=== PATIENT | male | born 1985 | race Caucasian/White ===

== ENCOUNTER → 2018-02-13 08:55 | Outpatient (CLI) | payer MEDICARE, MEDICAID, SELFPAY ==
--- NOTE | 2018-02-13 09:09 | EKG12_ITS ---
Test Reason : Blood Pressure : / mmHG Vent. Rate : 049 BPM Atrial Rate : 049 BPM P-R Int : 174 ms QRS Dur : 092 ms QT Int : 414 ms P-R-T Axes : 045 002 014 degrees QTc Int : 373 ms Marked sinus bradycardia Cannot rule out Inferior infarct , age undetermined Abnormal ECG Confirmed by SARITHA COREA, FOSTER ([id number]), acquisitions editor AKIRA MANCERA ([id number] on 02/14/2018 3:35:09 PM Referred By: OUT DOCTOR Confirmed By:FOSTER MELARA MD
== END ==
DX: Z79.899 Other long term (current) drug therapy (principal)
CPT/HCPCS: 93005

== ENCOUNTER 2018-04-17 10:17 | Inpatient (IN) | payer MEDICARE, MEDICAID, SELFPAY ==
[2018-04-17] VITALS (9 sets, daily range): BP systolic 106–155; BP diastolic 63–97; PULSE 63–107; RESP 12–20; TEMP 36.6; O2SAT 96–99
[2018-04-17 11:25] LABS: Absolute Neutrophil Count 4.2 X10^3/uL (2.0-7.7); Basophil# 0.02 X10^3/uL; Basophil% 0.3 % (0-1); Eosinophil# 0.03 X10^3/uL; Eosinophils% 0.4 % (0-5); Hematocrit 43.3 % (40-54); Hemoglobin 14.4 g/dl (13.0-16.5); Lymphocyte % 29.6 % (19-41); Mean Corp Hgb Conc 33.3 g/gl (32-36); Mean Corpuscular Hgb 29.1 pg (27.0-32.0); Mean Corpuscular Volume 87.7 fL (80-94); Monocyte# 0.45 X10^3/uL; Monocyte% 6.7 % (0-10); Neutrophil # 4.23 X10^3/uL (2.7-7.7); Neutrophil % 62.6 % (47-70); POSITIVE COUNT NO; POSITIVE DIFFERENTIAL NO; POSITIVE MORPHOLOGY NO; Platelet Count 200 K/mm3 (150-450); RBC Distribution Width CV 13.2 % (11.6-14.6); RBC Distribution Width SD 42.1 fl (35.1-43.9); Red Blood Count 4.94 M/mm3 (4.6-6.2); White Blood Count 6.8 K/mm3 (4.4-11.0)
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
[2018-04-17 11:39] LABS: AST(SGOT) 22 U/L (15-37); Alanine Aminotransfer ALT/SGPT 32 U/L (16-61); Albumin, Serum 4.9 g/dL (3.2-5.0); Alkaline Phosphatase 76 U/L (45-117); Anion Gap 8 (5-15); BUN 11 mg/dL (7-18); BUN/Creat Ratio 14.6 RATIO (10-20); Bilirubin, Direct 0.17 mg/dL (0.00-0.30); Calcium,Total 10.4 mg/dL (8.5-10.1); Chloride 102 mmol/L (98-107); Creatinine, Serum 0.75 mg/dL (0.70-1.30); EST Glomerular Filtration Rate 126 mL/min (>60); Est Glom Filt Rate - Afr Amer 152 mL/min (>60); Estimated Creatinine Clearance 143.14 ml/min; Globulin 3.8 g/dL (2.2-4.2); Glucose 105 mg/dL (74-106); Lipase 107 U/L (73-393); Potassium 3.8 mmol/L (3.5-5.1); Protein, Total 8.7 g/dL (6.4-8.2); Sodium Level 139 mmol/L (136-145)
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
[2018-04-17 12:03] LABS: Alcohol, Blood (Medical)-Serum < 3.0 mg/dL
[2018-04-17] MEDS: Ziprasidone IM 20 MG/ML VIAL 10 MG IM ×2 (12:42→13:27)
--- NOTE | 2018-04-17 13:12 | CASEMGMT ---
Social Work Accompanied laser technician, Saundra Banuelos, to meet pt's mother. Pt recently sedated. Mother, Paige, present outside of room. Introduced self and role. Mother reports that the pt does live in a fdc and is there under a Medicaid Waiver. Geraldo Rayo, with crisis is here to evaluate the pt for placement. Paige denies any needs at this time and is made aware that SW and Health Sciences Program Coordinator are available. Elle Mcnair, INSPECTOR FLOOR SUB ASSEMBLY, UI ARCHITECT
[2018-04-17] MEDS: Haloperidol Lactate 5 MG/ML Vial 10 MG IM (15:26)
[2018-04-17] MEDS: DiphenhydrAMINE 50 MG/ML Syringe 25 MG IM (15:26)
[2018-04-17 15:55] LABS: Amphetamine Urine VISTA NEGATIVE (<1000 ng/mL); Barbiturate Urine VISTA NEGATIVE (< 200 ng/mL); Benzodiazepine Urine VISTA NEGATIVE (< 200 ng/mL); Cocaine Urine VISTA NEGATIVE (< 300 ng/mL); Ecstacy Urine VISTA NEGATIVE (< 500 ng/mL); Methadone Urine VISTA NEGATIVE (< 300 ng/mL); PCP Urine VISTA NEGATIVE (< 25 ng/mL); THC Urine VISTA NEGATIVE (< 50 ng/mL); Vista UDS pH Range 6
[2018-04-17] MEDS: LORazepam 2 MG/ML Syringe IM (16:05)
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
[2018-04-17] MEDS: diazePAM 10 MG/2 ML Syringe 5 MG IM (18:12)
--- NOTE | 2018-04-17 21:41 | ED.RN ---
PT BECAME EXTREMELY COMBATIVE AND AGITATED. PT THRASHING AROUND AND HITTING BED. PT HARM TO HIMSELF AND OTHERS. PT BECAME VERY VIOLENT AND YELLING LOUDLY. PT PLACED BACK INTO 4 POINT LOCKED RESTRAINTS.
[2018-04-17] MEDS: LORazepam 2 MG/ML Syringe 1 MG IM (23:27)
[2018-04-18] VITALS (42 sets, daily range): BP systolic 95–187; BP diastolic 54–144; PULSE 55–132; RESP 13–29; TEMP 36.3–37.2; O2SAT 95–100; BMI 25.5
[2018-04-18] MEDS: LORazepam 2 MG/ML Syringe 1 MG IM (00:30)
[2018-04-18] MEDS: DiphenhydrAMINE 50 MG/ML Syringe IM (00:30)
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
[2018-04-18] MEDS: Ziprasidone IM 20 MG/ML VIAL IM (03:44)
--- NOTE | 2018-04-18 04:07 | ED.RN ---
PT RECEIVED GEODON AND WAITING FOR THE MEDICATION TO CALM THE PT.PT CONTINUES TO YELL AND MOVE RESTLESS IN BED.RESTRAINTS MAINTAINED AT THIS TIME.
--- NOTE | 2018-04-18 05:16 | ED.RN ---
PT APPEARS TO BE ASLEEP,REMOVED RESTRAINT FROM L HAND.WILL MONITOR.
--- NOTE | 2018-04-18 06:03 | ED.RN ---
pt sleeping,l leg released.
--- NOTE | 2018-04-18 07:03 | ED.RN ---
0630 PT STARTED TO KICK AND MARIELA,RESTRAINTS APPLIED.
--- NOTE | 2018-04-18 08:03 | ED.RN ---
TALKED WITH HOUSEHOLD APPLIANCES SALESPERSON THEY ARE IN A MEETING AND SOMEONE WILL CALL IN A HALF HOUR [phone]
--- NOTE | 2018-04-18 08:30 | ED.RN ---
PT REQUESTING IN USE BR. REMOVED FROM RESTAINTS, CALM AND COOPERATIVE. RESTRAINTS LEFT OFF AT THIS TIME. FAMILY AT BEDSIDE. ANGIE FROM CRISIS. CALLED TO UPDATED THAT DIRECTOR OF [facility]DD IS ALSO ATTEMPTING TO FIND PT PLACMENT.
--- NOTE | 2018-04-18 08:39 | ED.RN ---
ANGIE EARLY CALLED DIRECTOR OF BOARD OF DD, ANGIE AMATO, HE IS CURRENTLY LOOKING FOR PLACEMENT OF PATIENT @[phone]
[2018-04-18] MEDS: LORazepam 2 MG/ML Syringe IM ×2 (10:46→16:00)
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
--- NOTE | 2018-04-18 12:20 | ED.RN ---
ANGIE FROM CRISIS CALLED WITH UPDATE. NO PLACEMENT AT THIS TIME. HAS BEEN DECLINED BY SEVERAL FACILITIES. PLACING NEW REFERAL TO [place] AT THIS TIME.
--- NOTE | 2018-04-18 12:59 | EKG12_ITS ---
Test Reason : MENTAL Blood Pressure : / mmHG Vent. Rate : 094 BPM Atrial Rate : 094 BPM P-R Int : 148 ms QRS Dur : 082 ms QT Int : 354 ms P-R-T Axes : 046 000 010 degrees QTc Int : 442 ms Normal sinus rhythm Normal ECG Confirmed by FOSTER MELARA MD ([id number]), magazine editor JOSELITO LIVINGSTON ([id number]) on 04/21/2018 8:37:45 AM Referred By: DAIANA Confirmed By:FOSTER MELARA MD
[2018-04-18 14:16] LABS: CPK Total, Creatine Kinase 1826 U/L (39-308)
--- NOTE | 2018-04-18 14:45 | ED.RN ---
LAB WORK, MED LIST AND EKG FAXED TO [facility]. PT REMAINS AGIITATED AND YELLING OUT FREQUENTLY. REPOSITIONED IN BED. REPOSITIONED RESTRAINTS AND OFFERED DRINK AND TOILETING. DAD REMAINS AT BEDSIDE.
--- NOTE | 2018-04-18 15:01 | ED.RN ---
REFUSING MEDICATIONS AT THIS TIME.
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
[2018-04-18] MEDS: 0.9% Normal Saline 1,000 ML 150 ML IV (18:51)
--- NOTE | 2018-04-18 21:05 | NURSING ---
Pt resting in bed quietly. Ankle restraints removed. Father asleep at bedside.
[2018-04-18 21:43] LABS: M R Staph aureus DNA By PCR Negative (Negative); Probe Check PASS; Specimen Processing Control PASS
--- NOTE | 2018-04-18 22:20 | NURSING ---
Attempted to assist pt with ordered PO medications. Offered food, drink and toileting at this time. Pt refused, yelling out. This RN and father unable to calm pt. Wrist restraints remain in place.
[2018-04-19] VITALS (41 sets, daily range): BP systolic 96–142; BP diastolic 53–99; PULSE 39–116; RESP 14–32; TEMP 36.1–36.7; O2SAT 95–99
--- NOTE | 2018-04-19 00:05 | NURSING ---
Pt bladder scanned for 288 ml. Pt denies need to void.
[2018-04-19] MEDS: 0.9% Normal Saline 1,000 ML 150 ML IV ×4 (01:29→20:20)
--- NOTE | 2018-04-19 02:00 | NURSING ---
4 point locked restraints removed from wrists. Pt placed in soft wrist restraints for non-violent behavior and to continue medical management safely.
--- NOTE | 2018-04-19 02:45 | NURSING ---
This RN and LITHARGE MILL OPERATOR at bedside to assist pt in voiding. Pt became very agitated and combative with staff. Unable to calm patient, additional staff called to bedside and 4 point locked restraints were reapplied. aware.
--- NOTE | 2018-04-19 03:57 | PCA ---
patient in 4 point locked restraints which are locked to the bed and could be adding to the patients weight
[2018-04-19 04:24] LABS: Hematocrit 38.6 % (40-54); Hemoglobin 12.7 g/dl (13.0-16.5); Mean Corp Hgb Conc 32.9 g/gl (32-36); Mean Corpuscular Hgb 29.3 pg (27.0-32.0); Mean Corpuscular Volume 89.1 fL (80-94); Platelet Count 171 K/mm3 (150-450); RBC Distribution Width CV 13.5 % (11.6-14.6); RBC Distribution Width SD 44.2 fl (35.1-43.9); Red Blood Count 4.33 M/mm3 (4.6-6.2); White Blood Count 5.4 K/mm3 (4.4-11.0)
[2018-04-19 04:26] LABS: Scan Indicated on CBC? Y/N NO
[2018-04-19 05:21] LABS: Anion Gap 6 (5-15); BUN 15 mg/dL (7-18); BUN/Creat Ratio 20.7 RATIO (10-20); CPK Total, Creatine Kinase 1636 U/L (39-308); Calcium,Total 8.4 mg/dL (8.5-10.1); Chloride 110 mmol/L (98-107); Creatinine, Serum 0.73 mg/dL (0.70-1.30); EST Glomerular Filtration Rate 131 mL/min (>60); Est Glom Filt Rate - Afr Amer 159 mL/min (>60); Estimated Creatinine Clearance 147.22 ml/min; Glucose 100 mg/dL (74-106); Potassium 3.5 mmol/L (3.5-5.1); Sodium Level 144 mmol/L (136-145)
[2018-04-19] MEDS: RisperiDONE 2 MG Tablet 4 MG PO ×2 (09:07→22:33)
[2018-04-19] MEDS: Enoxaparin 40 MG/0.4 ML Syringe SC (09:10)
[2018-04-19] MEDS: fluvoxaMINE Maleate 50 MG Tablet 200 MG PO (09:10)
--- NOTE | 2018-04-19 10:05 | PCM.PN.HOSP ---
Patient Problems: Active and Suspected Problems Agitation (Acute) Elevated CPK (Acute) Subjective: Agitated overnight. He was not to medications. Still thrashing in his bed at times yelling out. Patient is to complain of having to go to the bathroom. Were able to get the patient to take his home medications when his mother told us to ask him if he was having headache and variably patient only says yes and told that he was taking Tylenol when he was not given his medications. This was done so patient was occasions and we are hoping to avoid placing an NG tube. Vitals/I&O's: Vital Signs Temp Pulse Resp BP Pulse Ox 36.3 C L 40 L 19 H 137/84 H 99 04/19/18 08:00 04/19/18 09:00 04/19/18 09:00 04/19/18 09:00 04/19/18 09:00 Oxygen Delivery Method Room Air Weight: 84.6 kg Body Mass Index (BMI) 25.5 Intake and Output for Last 24 Hours 04/17/18 04/18/18 04/19/18 23:59 23:59 23:59 Intake Total 721 / 721 1416 / 1416 Output Total 100 / 100 Balance 721 / 721 1316 / 1316 General: - - Agitated. Confused. Yelling out. Thrashing in bed. In four-point restraints. HEENT: Atraumatic, Normocephalic Oral: Moist Mucosa, No Gingival or Mucosal Lesions/ Ulcerations Neck: No Nodes, Thyroid Normal Size and Texture Lungs: Clear to auscultation, Normal air movement, No rhonchi, No wheeze Cardiovascular: Regular rate, Regular Rhythm, Normal S1, Normal S2, No murmurs Abdomen: Bowel Sounds Present, Soft, Non Tender, Non-Distended, No Hepato-splenomegaly Extremities: No edema, No Calf Tenderness Skin: No rashes, No breakdown Psych/Mental Status: Agitated, Anxious, Irrational Behavior, Restless Laboratory Results 04/18/18 20:00: MRSA (PCR) Negative 04/19/18 04:05: WBC 5.4, RBC 4.33 L, Hgb 12.7 L, Hct 38.6 L, MCV 89.1, MCH 29.3, MCHC 32.9, RDW 13.5, RDW Differential 44.2 H, Plt Count 171, MPV 10.0 04/19/18 04:05: Sodium 144, Potassium 3.5, Chloride 110 H, Carbon Dioxide 28.0, Anion Gap 6, BUN 15, Creatinine 0.73, Estim Creat Clear Calc 147.22, Est GFR (MDRD) Af Amer 159, Est GFR (MDRD) Non-Af 131, BUN/Creatinine Ratio 20.7 H, Glucose 100, Calcium 8.4 L 04/19/18 04:05: Total Creatine Kinase 1636 H Current Medications Enoxaparin Sodium (Lovenox) 40 mg SC DAILY@1000 [facility] Last Admin: 04/19/18 09:10 Dose: 40 mg Fluvoxamine Maleate (Luvox) 200 mg PO DAILY [facility] Last Admin: 04/19/18 09:10 Dose: 200 mg Dexmedetomidine HCl 400 mcg/ (Sodium Chloride) 100 mls @ 10.08 mls/hr IV .Q9H56M [facility] PRN Reason: 0.5 MCG/KG/HR Last Admin: 04/19/18 04:07 Dose: 10.08 mls/hr Sodium Chloride () 1,000 mls @ 150 mls/hr IV .Q6H40M [facility] Last Admin: 04/19/18 07:56 Dose: 150 mls/hr Magnesium Hydroxide (Milk Of Magnesia) 30 ml PO DAILY PRN PRN PRN Reason: Constipation Propranolol HCl (Inderal) 10 mg PO DAILY [facility] Last Admin: 04/19/18 09:00 Dose: Not Given Propranolol HCl (Inderal) 20 mg PO QHS [facility] Last Admin: 04/18/18 21:49 Dose: Not Given Risperidone (Risperdal) 4 mg PO BID [facility] Last Admin: 04/19/18 09:07 Dose: 4 mg Sodium Chloride () 5 - 30 ml IV UD PRN PRN Reason: SALINE FLUSH Vilazodone HCl (Viibryd) 20 mg PO DAILY@2200 [facility] Last Admin: 04/18/18 21:50 Dose: Not Given Medical Necessity - Tobacco Use Smoking Status: Never smoker Assessment/Plan All Active Problems Agitation (Acute) Elevated CPK (Acute) 1. Agitation Patient has been on maximum dose of Precedex Were able to get the patient to take his home medications with Risperdal this morning. Will help that his home medications will help the Precedex drip. May need to introduce other medications to help with sedation if patient continues to be combative. Will initiate Precedex taper Feel that the patient's agitation has accelerated drained. This was also commented by the patient's mother who saw all of this. 2. Elevated CPK The psychiatric facilities have declined taking the patient because of his CPKs being elevated The reason for the patient's CPK is elevated R due to his constant thrashing around. I do not feel the patient is undergoing rhabdomyolysis for unknown reasons but simply due to the fact that he is currently thrashing around. Unfortunately, I feel, that the refusal of the psychiatric units to take this patient based on his CPK is just a stalling tactic and there is no medical necessity for the patient to remain in this hospital based solely on the CPKs. Additionally, I do not know of any specific reason why CPKs were checked in the first place. 3. Autism/OCD/aggressive behavior Continue with Risperdal and Viibryd Patient requires further inpatient psychiatric assistance as we do not have the appropriate services to meet this patient's needs. 4. DVT prophylaxis with Lovenox Greater than 40 minutes of which greater than 50% of time was counseling the patient's mother at bedside in addressing modalities of providing the patient is home medications. Code Visit Inpatient E&M: 21230 Subs Hosp L3
--- NOTE | 2018-04-19 10:18 | PN_ITS ---
Patient Problems: Active and Suspected Problems Agitation (Acute) Elevated CPK (Acute) Subjective: Agitated overnight. He was not to medications. Still thrashing in his bed at times yelling out. Patient is to complain of having to go to the bathroom. Were able to get the patient to take his home medications when his mother told us to ask him if he was having headache and variably patient only says yes and told that he was taking Tylenol when he was not given his medications. This was done so patient was occasions and we are hoping to avoid placing an NG tube. Vitals/I&O's: Vital Signs Temp Pulse Resp BP Pulse Ox 36.3 C L 40 L 19 H 137/84 H 99 04/19/18 08:00 04/19/18 09:00 04/19/18 09:00 04/19/18 09:00 04/19/18 09:00 Oxygen Delivery Method Room Air Weight: 84.6 kg Body Mass Index (BMI) 25.5 Intake and Output for Last 24 Hours 04/17/18 04/18/18 04/19/18 23:59 23:59 23:59 Intake Total 721 / 721 1416 / 1416 Output Total 100 / 100 Balance 721 / 721 1316 / 1316 General: - - Agitated. Confused. Yelling out. Thrashing in bed. In four- point restraints. HEENT: Atraumatic, Normocephalic Oral: Moist Mucosa, No Gingival or Mucosal Lesions/ Ulcerations Neck: No Nodes, Thyroid Normal Size and Texture Lungs: Clear to auscultation, Normal air movement, No rhonchi, No wheeze Cardiovascular: Regular rate, Regular Rhythm, Normal S1, Normal S2, No murmurs Abdomen: Bowel Sounds Present, Soft, Non Tender, Non-Distended, No Hepato- splenomegaly Extremities: No edema, No Calf Tenderness Skin: No rashes, No breakdown Psych/Mental Status: Agitated, Anxious, Irrational Behavior, Restless Laboratory Results 04/18/18 20:00: MRSA (PCR) Negative 04/19/18 04:05: WBC 5.4, RBC 4.33 L, Hgb 12.7 L, Hct 38.6 L, MCV 89.1, MCH 29.3 , MCHC 32.9, RDW 13.5, RDW Differential 44.2 H, Plt Count 171, MPV 10.0 04/19/18 04:05: Sodium 144, Potassium 3.5, Chloride 110 H, Carbon Dioxide 28.0, Anion Gap 6, BUN 15, Creatinine 0.73, Estim Creat Clear Calc 147.22, Est GFR ( MDRD) Af Amer 159, Est GFR (MDRD) Non-Af 131, BUN/Creatinine Ratio 20.7 H, Glucose 100, Calcium 8.4 L 04/19/18 04:05: Total Creatine Kinase 1636 H Current Medications Enoxaparin Sodium (Lovenox) 40 mg SC DAILY@1000 [facility] Last Admin: 04/19/18 09:10 Dose: 40 mg Fluvoxamine Maleate (Luvox) 200 mg PO DAILY [facility] Last Admin: 04/19/18 09:10 Dose: 200 mg Dexmedetomidine HCl 400 mcg/ (Sodium Chloride) 100 mls @ 10.08 mls/hr IV .Q9H56M [facility] PRN Reason: 0.5 MCG/KG/HR Last Admin: 04/19/18 04:07 Dose: 10.08 mls/hr Sodium Chloride () 1,000 mls @ 150 mls/hr IV .Q6H40M [facility] Last Admin: 04/19/18 07:56 Dose: 150 mls/hr Magnesium Hydroxide (Milk Of Magnesia) 30 ml PO DAILY PRN PRN PRN Reason: Constipation Propranolol HCl (Inderal) 10 mg PO DAILY [facility] Last Admin: 04/19/18 09:00 Dose: Not Given Propranolol HCl (Inderal) 20 mg PO QHS [facility] Last Admin: 04/18/18 21:49 Dose: Not Given Risperidone (Risperdal) 4 mg PO BID [facility] Last Admin: 04/19/18 09:07 Dose: 4 mg Sodium Chloride () 5 - 30 ml IV UD PRN PRN Reason: SALINE FLUSH Vilazodone HCl (Viibryd) 20 mg PO DAILY@2200 [facility] Last Admin: 04/18/18 21:50 Dose: Not Given Medical Necessity - Tobacco Use Smoking Status: Never smoker Assessment/Plan All Active Problems Agitation (Acute) Elevated CPK (Acute) 1. Agitation * Patient has been on maximum dose of Precedex * Were able to get the patient to take his home medications with Risperdal this morning. * Will help that his home medications will help the Precedex drip. May need to introduce other medications to help with sedation if patient continues to be combative. * Will initiate Precedex taper * Feel that the patient's agitation has accelerated drained. This was also commented by the patient's mother who saw all of this. 2. Elevated CPK * The psychiatric facilities have declined taking the patient because of his CPKs being elevated * The reason for the patient's CPK is elevated R due to his constant thrashing around. I do not feel the patient is undergoing rhabdomyolysis for unknown reasons but simply due to the fact that he is currently thrashing around. * Unfortunately, I feel, that the refusal of the psychiatric units to take this patient based on his CPK is just a stalling tactic and there is no medical necessity for the patient to remain in this hospital based solely on the CPKs. * Additionally, I do not know of any specific reason why CPKs were checked in the first place. 3. Autism/OCD/aggressive behavior * Continue with Risperdal and Viibryd * Patient requires further inpatient psychiatric assistance as we do not have the appropriate services to meet this patient's needs. 4. DVT prophylaxis with Lovenox Greater than 40 minutes of which greater than 50% of time was counseling the patient's mother at bedside in addressing modalities of providing the patient is home medications. Code Visit Inpatient E&M: 94324 [facility] Hosp L3
--- NOTE | 2018-04-19 11:13 | CASEMGMT ---
SW was told patient is medically cleared. KIRAN called fire official and asked her to call crisis to come and see patient to work on psych placement. Susanna HARRY MSW
[2018-04-19 13:31] LABS: CPK Total, Creatine Kinase 1740 U/L (39-308)
--- NOTE | 2018-04-19 17:44 | CHAPLAIN ---
Type of Pastoral Visit ___ Initial Visit ___ Follow-up Visit ___ On-call Visit ___ General Patient Visit ___ Spiritual Assessment ___ Family Conference ___ Bereavement ___ Rapid Response ___ Code Blue _x__ Other (describe below) Pastoral Care Referral From ___ Patient ___ Family _x__ Nurse ___ Physician ___ Team Psychologist ___ Operations And Maintenance Technician _x__ Other (describe below) Sacrament/Intervention ___ Active listening ___ Anointing ___ Hinduism ___ Bereavement ___ Communion ___ Hilary exploration ___ ___ Life review ___ Prayer ___ Reconciliation ___ Sacrament of Sick _x__ Supportive presence ___ Wedding _x__ Other (describe below) Pastoral Comments spoke with parents of pt during his ED stay and spoke with mother of patient today in ICU; offer of presence and support; parents are obviously in need of support but kindly respond that I will be ok but it is hard;
[2018-04-19] MEDS: VILAZODONE HYDROCHLORIDE 20 MG TABLET PO (22:49)
[2018-04-20] VITALS (24 sets, daily range): BP systolic 99–147; BP diastolic 60–93; PULSE 47–90; RESP 16–30; TEMP 36.8–37.1; O2SAT 95–99
[2018-04-20] MEDS: 0.9% Normal Saline 1,000 ML 150 ML IV ×4 (02:21→22:30)
[2018-04-20 06:40] LABS: Hemoglobin 12.4 g/dl (13.0-16.5); Mean Corp Hgb Conc 32.6 g/gl (32-36); Mean Corpuscular Hgb 28.8 pg (27.0-32.0); Mean Corpuscular Volume 88.2 fL (80-94); Mean Platelet Vol. 10.3 fl (6.2-12.0); Platelet Count 178 K/mm3 (150-450); RBC Distribution Width CV 13.1 % (11.6-14.6); RBC Distribution Width SD 42.4 fl (35.1-43.9); Red Blood Count 4.31 M/mm3 (4.6-6.2)
[2018-04-20 06:45] LABS: Scan Indicated on CBC? Y/N NO
[2018-04-20 06:52] LABS: Anion Gap 7 (5-15); BUN 6 mg/dL (7-18); Calcium,Total 8.6 mg/dL (8.5-10.1); Chloride 109 mmol/L (98-107); Creatinine, Serum 0.55 mg/dL (0.70-1.30); EST Glomerular Filtration Rate 182 mL/min (>60); Est Glom Filt Rate - Afr Amer 220 mL/min (>60); Glucose 110 mg/dL (74-106); Potassium 3.5 mmol/L (3.5-5.1); Sodium Level 142 mmol/L (136-145)
[2018-04-20 07:08] LABS: CPK Total, Creatine Kinase 1258 U/L (39-308)
--- NOTE | 2018-04-20 08:49 | NURSING ---
Pt reported he 'farted'. Loose BM in attends. Jane-care provided & new attends placed. New linens as well, and pt pulled up in bed. Locked restraints removed and soft wrist restraints applied. RN remains in room w/pt to monitor. Pt refusing breakfast, states will eat breakfast at home. Offered fluids, pt refused.
--- NOTE | 2018-04-20 08:58 | PN_ITS ---
Patient Problems: Active and Suspected Problems Elevated CPK (Acute) Agitation (Acute) Subjective: Did have some agitation last night and then Precedex was started. Precedex was discontinued at 0600. Patient has been calm this morning. Patient is asking about his mother. Patient's restraints on his legs have been removed. Vitals/I&O's: Vital Signs Temp Pulse Resp BP Pulse Ox 36.8 C 71 16 136/90 H 98 04/20/18 00:00 04/20/18 07:00 04/20/18 07:00 04/20/18 07:00 04/20/18 07:00 Oxygen Delivery Method Room Air Weight: 84.9 kg Body Mass Index (BMI) 25.5 Intake and Output for Last 24 Hours 04/18/18 04/19/18 04/20/18 23:59 23:59 23:59 Intake Total 721 / 721 3706 / 3706 2343 / 2343 Output Total 2049 / 2049 1575 / 1575 Balance 721 / 721 1656 / 1656 768 / 768 General: Alert, Cooperative, No apparent distress, - - Shook my hand. HEENT: Atraumatic, Normocephalic Psych/Mental Status: Normal Affect, Appropriate Laboratory Results 04/19/18 12:35: Total Creatine Kinase 1740 H 04/20/18 06:15: WBC 6.0, RBC 4.31 L, Hgb 12.4 L, Hct 38.0 L, MCV 88.2, MCH 28.8 , MCHC 32.6, RDW 13.1, RDW Differential 42.4, Plt Count 178, MPV 10.3 04/20/18 06:15: Sodium 142, Potassium 3.5, Chloride 109 H, Carbon Dioxide 26.0, Anion Gap 7, BUN 6 L, Creatinine 0.55 L, Estim Creat Clear Calc 195.40, Est GFR (MDRD) Af Amer 220, Est GFR (MDRD) Non-Af 182, BUN/Creatinine Ratio 11.0, Glucose 110 H, Calcium 8.6 04/20/18 06:15: Total Creatine Kinase 1258 H Current Medications Enoxaparin Sodium (Lovenox) 40 mg SC DAILY@1000 [facility] Last Admin: 04/19/18 09:10 Dose: 40 mg Fluvoxamine Maleate (Luvox) 200 mg PO DAILY [facility] Last Admin: 04/19/18 09:10 Dose: 200 mg Dexmedetomidine HCl 400 mcg/ (Sodium Chloride) 100 mls @ 10.08 mls/hr IV .Q9H56M [facility] PRN Reason: 0.5 MCG/KG/HR Last Admin: 04/20/18 02:20 Dose: 10.08 mls/hr Sodium Chloride () 1,000 mls @ 150 mls/hr IV .Q6H40M [facility] Last Admin: 04/20/18 08:41 Dose: 150 mls/hr Magnesium Hydroxide (Milk Of Magnesia) 30 ml PO DAILY PRN PRN PRN Reason: Constipation Propranolol HCl (Inderal) 10 mg PO DAILY [facility] Last Admin: 04/19/18 09:00 Dose: Not Given Propranolol HCl (Inderal) 20 mg PO QHS [facility] Last Admin: 04/19/18 22:34 Dose: Not Given Risperidone (Risperdal) 4 mg PO BID [facility] Last Admin: 04/19/18 22:33 Dose: 4 mg Sodium Chloride () 5 - 30 ml IV UD PRN PRN Reason: SALINE FLUSH Vilazodone HCl (Viibryd) 20 mg PO DAILY@2200 [facility] Last Admin: 04/19/18 22:49 Dose: 20 mg Medical Necessity - Tobacco Use Smoking Status: Never smoker Assessment/Plan All Active Problems Elevated CPK (Acute) Agitation (Acute) 1. Agitation * Precedex now off * Patient has been taking his Risperdal and Viibryd 2. Elevated CPK * The psychiatric facilities have declined taking the patient because of his CPKs being elevated * The reason for the patient's CPK is elevated R due to his constant thrashing around. I do not feel the patient is undergoing rhabdomyolysis for unknown reasons but simply due to the fact that he is currently thrashing around. * Unfortunately, I feel, that the refusal of the psychiatric units to take this patient based on his CPK is just a stalling tactic and there is no medical necessity for the patient to remain in this hospital based solely on the CPKs. * Additionally, I do not know of any specific reason why CPKs were checked in the first place. 3. Autism/OCD/aggressive behavior * Continue with Risperdal and Viibryd * Patient requires further inpatient psychiatric assistance as we do not have the appropriate services to meet this patient's needs. 4. DVT prophylaxis with Lovenox Code Visit Inpatient E&M: 13315 Subs Hosp L2
[2018-04-20] MEDS: fluvoxaMINE Maleate 50 MG Tablet 200 MG PO (09:51)
[2018-04-20] MEDS: RisperiDONE 2 MG Tablet 4 MG PO ×2 (09:51→20:20)
[2018-04-20] MEDS: Propranolol 10 MG Tablet PO (09:51)
--- NOTE | 2018-04-20 18:24 | NURSING ---
0930-Charge nurse Barby called [facility] center to find out plan for pt. 1115- Charge nurse Barby called [facility] center again to find out plan. 1140- Filemon from [facility] center called back and stated that pt is no longer considered under their services but is soley the responsibility of the Board of DD. He gave this RN the # to call to talk to pt's [employer]. 1145- Spoke w/HOWARD Sullivan w/Board of DD, who stated that no [facility] will take the pt, [facility] unable to provided 1:1 care and she was going to be meeting w/her boss to discuss options. 1310- Laurie called back and stated that she is looking for a respite stay for pt and will keep in contact w/nursing staff regarding plan.
[2018-04-20] MEDS: Propranolol 10 MG Tablet 20 MG PO (20:21)
[2018-04-21] VITALS (12 sets, daily range): BP systolic 91–165; BP diastolic 34–94; PULSE 59–76; RESP 16–24; TEMP 36.6–37.3; O2SAT 96–100
[2018-04-21 03:40] LABS: Hematocrit 39.5 % (40-54); Hemoglobin 13.1 g/dl (13.0-16.5); Mean Corp Hgb Conc 33.2 g/gl (32-36); Mean Corpuscular Hgb 29.1 pg (27.0-32.0); Mean Corpuscular Volume 87.8 fL (80-94); Mean Platelet Vol. 9.6 fl (6.2-12.0); Platelet Count 192 K/mm3 (150-450); RBC Distribution Width SD 41.8 fl (35.1-43.9); White Blood Count 7.6 K/mm3 (4.4-11.0)
[2018-04-21 03:41] LABS: Scan Indicated on CBC? Y/N NO
[2018-04-21 03:51] LABS: Anion Gap 8 (5-15); BUN 5 mg/dL (7-18); BUN/Creat Ratio 7.7 RATIO (10-20); Calcium,Total 8.6 mg/dL (8.5-10.1); Chloride 109 mmol/L (98-107); Creatinine, Serum 0.65 mg/dL (0.70-1.30); EST Glomerular Filtration Rate 149 mL/min (>60); Est Glom Filt Rate - Afr Amer 180 mL/min (>60); Estimated Creatinine Clearance 165.34 ml/min; Glucose 97 mg/dL (74-106); Potassium 3.5 mmol/L (3.5-5.1); Sodium Level 144 mmol/L (136-145)
[2018-04-21 04:21] LABS: CPK Total, Creatine Kinase 1474 U/L (39-308)
[2018-04-21] MEDS: 0.9% Normal Saline 1,000 ML 150 ML IV ×3 (04:55→18:25)
--- NOTE | 2018-04-21 08:24 | PCM.PN.HOSP ---
Patient Problems: Active and Suspected Problems Elevated CPK (Acute) Agitation (Acute) Subjective: Has been pleasant. Soft wrist restraints since the . Vitals/I&O's: Vital Signs Temp Pulse Resp BP Pulse Ox 37.3 C 76 16 165/94 H 99 04/21/18 08:00 04/21/18 08:00 04/21/18 08:00 04/21/18 08:00 04/21/18 08:00 Oxygen Delivery Method Room Air Weight: 83.4 kg Body Mass Index (BMI) 25.5 Intake and Output for Last 24 Hours 04/19/18 04/20/18 04/21/18 23:59 23:59 23:59 Intake Total 3706 / 3706 5537 / 5537 1070 / 1070 Output Total 2049 / 2049 5300 / 5300 1000 / 1000 Balance 1656 / 1656 237 / 237 70 / 70 General: - - pleasant. follows instructions. HEENT: Atraumatic, Normocephalic Oral: Moist Mucosa, No Gingival or Mucosal Lesions/ Ulcerations Extremities: No cyanosis, No edema Skin: No rashes, No breakdown Musculoskeletal: No Tenderness to Palpation of Joints or Extremities, No Muscle Wasting Psych/Mental Status: Restless, - - more calm than he has been. Laboratory Results 04/21/18 03:30: WBC 7.6, RBC 4.50 L, Hgb 13.1, Hct 39.5 L, MCV 87.8, MCH 29.1, MCHC 33.2, RDW 13.0, RDW Differential 41.8, Plt Count 192, MPV 9.6 04/21/18 03:30: Sodium 144, Potassium 3.5, Chloride 109 H, Carbon Dioxide 27.0, Anion Gap 8, BUN 5 L, Creatinine 0.65 L, Estim Creat Clear Calc 165.34, Est GFR (MDRD) Af Amer 180, Est GFR (MDRD) Non-Af 149, BUN/Creatinine Ratio 7.7 L, Glucose 97, Calcium 8.6 04/21/18 03:30: Total Creatine Kinase 1474 H Current Medications Enoxaparin Sodium (Lovenox) 40 mg SC DAILY@1000 [facility] Last Admin: 04/20/18 16:10 Dose: Not Given Fluvoxamine Maleate (Luvox) 200 mg PO DAILY [facility] Last Admin: 04/20/18 09:51 Dose: 200 mg Sodium Chloride () 1,000 mls @ 150 mls/hr IV .Q6H40M [facility] Last Admin: 04/21/18 04:55 Dose: 150 mls/hr Magnesium Hydroxide (Milk Of Magnesia) 30 ml PO DAILY PRN PRN PRN Reason: Constipation Propranolol HCl (Inderal) 10 mg PO DAILY [facility] Last Admin: 04/20/18 09:51 Dose: 10 mg Propranolol HCl (Inderal) 20 mg PO QHS [facility] Last Admin: 04/20/18 20:21 Dose: 20 mg Risperidone (Risperdal) 4 mg PO BID [facility] Last Admin: 04/20/18 20:20 Dose: 4 mg Sodium Chloride () 5 - 30 ml IV UD PRN PRN Reason: SALINE FLUSH Medical Necessity - Tobacco Use Smoking Status: Never smoker Assessment/Plan All Active Problems Elevated CPK (Acute) Agitation (Acute) 1. Agitation Precedex now off Mother was concerned that his symptoms may have worsened since starting Viibryd. That was stopped on the continue with risperdal Crisis states that there is nothing further that they can do. Sent to the [facility]DD board who stated that no psych hospital will accept patient. [facility] unable to do 1 to 1 care. Respite care being evaluated. 2. Elevated CPK The psychiatric facilities have declined taking the patient because of his CPKs being elevated The reason for the patient's CPK is elevated R due to his constant thrashing around. I do not feel the patient is undergoing rhabdomyolysis for unknown reasons but simply due to the fact that he is currently thrashing around. Unfortunately, I feel, that the refusal of the psychiatric units to take this patient based on his CPK is just a stalling tactic and there is no medical necessity for the patient to remain in this hospital based solely on the CPKs. Additionally, I do not know of any specific reason why CPKs were checked in the first place. 3. Autism/OCD/aggressive behavior Continue with Risperdal and Viibryd Patient requires further inpatient psychiatric assistance as we do not have the appropriate services to meet this patient's needs. 4. DVT prophylaxis with Lovenox Code Visit Inpatient E&M: 49524 Subs Hosp L2
--- NOTE | 2018-04-21 08:30 | PN_ITS ---
Patient Problems: Active and Suspected Problems Elevated CPK (Acute) Agitation (Acute) Subjective: Has been pleasant. Soft wrist restraints since the . Vitals/I&O's: Vital Signs Temp Pulse Resp BP Pulse Ox 37.3 C 76 16 165/94 H 99 04/21/18 08:00 04/21/18 08:00 04/21/18 08:00 04/21/18 08:00 04/21/18 08:00 Oxygen Delivery Method Room Air Weight: 83.4 kg Body Mass Index (BMI) 25.5 Intake and Output for Last 24 Hours 04/19/18 04/20/18 04/21/18 23:59 23:59 23:59 Intake Total 3706 / 3706 5537 / 5537 1070 / 1070 Output Total 2049 / 2049 5300 / 5300 1000 / 1000 Balance 1656 / 1656 237 / 237 70 / 70 General: - - pleasant. follows instructions. HEENT: Atraumatic, Normocephalic Oral: Moist Mucosa, No Gingival or Mucosal Lesions/ Ulcerations Extremities: No cyanosis, No edema Skin: No rashes, No breakdown Musculoskeletal: No Tenderness to Palpation of Joints or Extremities, No Muscle Wasting Psych/Mental Status: Restless, - - more calm than he has been. Laboratory Results 04/21/18 03:30: WBC 7.6, RBC 4.50 L, Hgb 13.1, Hct 39.5 L, MCV 87.8, MCH 29.1, MCHC 33.2, RDW 13.0, RDW Differential 41.8, Plt Count 192, MPV 9.6 04/21/18 03:30: Sodium 144, Potassium 3.5, Chloride 109 H, Carbon Dioxide 27.0, Anion Gap 8, BUN 5 L, Creatinine 0.65 L, Estim Creat Clear Calc 165.34, Est GFR (MDRD) Af Amer 180, Est GFR (MDRD) Non-Af 149, BUN/Creatinine Ratio 7.7 L, Glucose 97, Calcium 8.6 04/21/18 03:30: Total Creatine Kinase 1474 H Current Medications Enoxaparin Sodium (Lovenox) 40 mg SC DAILY@1000 [facility] Last Admin: 04/20/18 16:10 Dose: Not Given Fluvoxamine Maleate (Luvox) 200 mg PO DAILY [facility] Last Admin: 04/20/18 09:51 Dose: 200 mg Sodium Chloride () 1,000 mls @ 150 mls/hr IV .Q6H40M [facility] Last Admin: 04/21/18 04:55 Dose: 150 mls/hr Magnesium Hydroxide (Milk Of Magnesia) 30 ml PO DAILY PRN PRN PRN Reason: Constipation Propranolol HCl (Inderal) 10 mg PO DAILY [facility] Last Admin: 04/20/18 09:51 Dose: 10 mg Propranolol HCl (Inderal) 20 mg PO QHS [facility] Last Admin: 04/20/18 20:21 Dose: 20 mg Risperidone (Risperdal) 4 mg PO BID [facility] Last Admin: 04/20/18 20:20 Dose: 4 mg Sodium Chloride () 5 - 30 ml IV UD PRN PRN Reason: SALINE FLUSH Medical Necessity - Tobacco Use Smoking Status: Never smoker Assessment/Plan All Active Problems Elevated CPK (Acute) Agitation (Acute) 1. Agitation * Precedex now off * Mother was concerned that his symptoms may have worsened since starting Viibryd. That was stopped on the * continue with risperdal * Crisis states that there is nothing further that they can do. * Sent to the [facility]DD board who stated that no psych hospital will accept patient. * senior care unable to do 1 to 1 care. * Respite care being evaluated. 2. Elevated CPK * The psychiatric facilities have declined taking the patient because of his CPKs being elevated * The reason for the patient's CPK is elevated R due to his constant thrashing around. I do not feel the patient is undergoing rhabdomyolysis for unknown reasons but simply due to the fact that he is currently thrashing around. * Unfortunately, I feel, that the refusal of the psychiatric units to take this patient based on his CPK is just a stalling tactic and there is no medical necessity for the patient to remain in this hospital based solely on the CPKs. * Additionally, I do not know of any specific reason why CPKs were checked in the first place. 3. Autism/OCD/aggressive behavior * Continue with Risperdal and Viibryd * Patient requires further inpatient psychiatric assistance as we do not have the appropriate services to meet this patient's needs. 4. DVT prophylaxis with Lovenox Code Visit Inpatient E&M: 83755 [facility] Hosp L2
[2018-04-21] MEDS: fluvoxaMINE Maleate 50 MG Tablet 200 MG PO (09:03)
[2018-04-21] MEDS: Propranolol 10 MG Tablet PO (09:03)
[2018-04-21] MEDS: RisperiDONE 2 MG Tablet 4 MG PO ×2 (09:05→21:37)
--- NOTE | 2018-04-21 09:20 | CASEMGMT ---
Addendum entered by Nuha Arboleda 04/21/18 10:01: SW did receive a message back from Laurie Agustin at , stating that she is working on respite care options for pt, and the correction is also working on options outside of [facility]. Pt cannot return to his current correction due to the safety of the other residents. KIRAN did call Laurie back, ([phone], [phone]), spoke w/her about options. She states they are working on finding a place for the pt to go. Laurie states she spoke w/his current correction to see if they would take him back if he had 1:1 supervision, but they do not have the staff to do this so are not willing to let pt return there. Laurie does understand it is not appropriate for pt to be here in the hospital either, and she is working to try to find another option for this pt. As per Laurie, they are working on it and there is not anything this SW can do to assist the process. KIRAN updated RN, will continue to follow. MOE Wyatt, LIBRARY SCIENCE INSTRUCTOR Original Note: KIRAN called ed case manager Laurie Agustin at ([phone]), message left inquiring what, if anything, has been arranged for respite for this pt and how this SW may assist in getting respite set up for this pt. KIRAN will wait for call back. MOE Wyatt, LIBRARY SCIENCE INSTRUCTOR
--- NOTE | 2018-04-21 10:32 | CASEMGMT ---
Addendum entered by Nuha Arboleda 04/21/18 15:34: KIRAN called Laurie Agustin, pt's housing case manager, to ask if [facility] is going to take pt. Laurie states that Berto Jalloh who met the pt did request information, which she sent at 3pm, and pt's mother thought it was a positive meeting. Berto needs to present the pt to his team to see if they can take him. Laurie to call SW back Tuesday to let SW know what the plan will be. KIRAN did give Laurie the SW on Tuesday's number to follow up. MOE Wyatt, CHIEF ENVIRONMENTAL COMMITMENT OFFICER Original Note: Addendum entered by Nuha Arboleda 04/21/18 13:12: SW did also meet pt's father Robbie and Berto Jalloh from [facility], SW asked Berto to let this SW know if they are going to take the pt. MOE Wyatt, CHIEF ENVIRONMENTAL COMMITMENT OFFICER Original Note: Addendum entered by Nuha Arboleda 04/21/18 12:48: SW spoke w/pt's mother in the [facility], pt is meeting w/Berto Jalloh at present. KIRAN offered support to pt's mother. She states pt has been in this halfway since December. She states things have been getting more difficult w/pt over the last couple of years. She states pt was having difficulty with one of the other residents at the halfway. She states she had in the past brought pt to her home and it has been fine, but this time he became extremely agitated. She states she thinks the behaviors may be related to a medication change. She does not feel like this was the fault of the halfway. She is hopeful that this [facility] may be able to take pt, though she knows that if they can take him it may not be until next week. Support given, KIRAN will continue to follow for support to pt's family and to assist in any way to get pt placed in a new halfway or for respite care. MOE Wyatt, CHIEF ENVIRONMENTAL COMMITMENT OFFICER Original Note: KIRAN spoke piero/Laurie from , she states that Berto Jalloh from [facility] in [facility], a large [facility], is coming today between 12pm-1pm to meet w/pt and pt's mother Paige to see if pt is appropriate for their facility. If they can take pt for respite, they would not be able to take pt until early next week. SW let RN on ICU know this information. SW will continue to follow. MOE Wyatt, CHIEF ENVIRONMENTAL COMMITMENT OFFICER
[2018-04-21] MEDS: Propranolol 10 MG Tablet 20 MG PO (21:37)
[2018-04-22] MEDS: 0.9% Normal Saline 1,000 ML 150 ML IV (01:02)
[2018-04-22 02:00] VITALS: BP 123/72; PULSE 58; RESP 20; TEMP 37.1; O2SAT 99
[2018-04-22 07:36] VITALS: BP 137/75; PULSE 63; RESP 20; TEMP 37; O2SAT 97
--- NOTE | 2018-04-22 08:47 | PCM.PN.HOSP ---
Patient Problems: Active and Suspected Problems Agitation (Acute) Subjective: Patient has been much more calm. Restraints have been completely removed and patient is pretty reasonable and follows instructions. Patient has had no evidence of any combative behavior. Objective: Patient had a normal gait when from the restroom. He did reach out his left hand unclear if was meant shake it but was shaken anyways. Talked about going home and about his mommy. Vitals/I&O's: Vital Signs Temp Pulse Resp BP Pulse Ox 37.0 C 63 20 H 137/75 H 97 04/22/18 07:36 04/22/18 07:36 04/22/18 07:36 04/22/18 07:36 04/22/18 07:36 Oxygen Delivery Method Room Air Weight: 83.4 kg Body Mass Index (BMI) 25.5 Intake and Output for Last 24 Hours 04/20/18 04/21/18 04/22/18 23:59 23:59 23:59 Intake Total 5537 / 5537 3230 / 3230 1805 / 1805 Output Total 5300 / 5300 3500 / 3500 550 / 550 Balance 237 / 237 -270 / -270 1255 / 1255 General: Alert, No apparent distress HEENT: Atraumatic, Normocephalic Oral: Moist Mucosa, No Gingival or Mucosal Lesions/ Ulcerations Neck: No Nodes, Thyroid Normal Size and Texture Lungs: Clear to auscultation, Normal air movement, No rhonchi, No wheeze Cardiovascular: Regular rate, Regular Rhythm, Normal S1, Normal S2, No murmurs Abdomen: Bowel Sounds Present, Soft, Non Tender, Non-Distended, No Hepato-splenomegaly Extremities: No edema, No Calf Tenderness Current Medications Enoxaparin Sodium (Lovenox) 40 mg SC DAILY@1000 [facility] Last Admin: 04/21/18 09:06 Dose: Not Given Fluvoxamine Maleate (Luvox) 200 mg PO DAILY [facility] Last Admin: 04/21/18 09:03 Dose: 200 mg Magnesium Hydroxide (Milk Of Magnesia) 30 ml PO DAILY PRN PRN PRN Reason: Constipation Propranolol HCl (Inderal) 10 mg PO DAILY [facility] Last Admin: 04/21/18 09:03 Dose: 10 mg Propranolol HCl (Inderal) 20 mg PO QHS [facility] Last Admin: 04/21/18 21:37 Dose: 20 mg Risperidone (Risperdal) 4 mg PO BID [facility] Last Admin: 04/21/18 21:37 Dose: 4 mg Sodium Chloride () 5 - 30 ml IV UD PRN PRN Reason: SALINE FLUSH Medical Necessity - Tobacco Use Smoking Status: Never smoker Assessment/Plan All Active Problems Elevated CPK (Acute) Agitation (Acute) 1. Agitation Precedex now off Mother was concerned that his symptoms may have worsened since starting Viibryd. That was stopped on the continue with risperdal Crisis states that there is nothing further that they can do. Sent to the [facility] board who stated that no psych hospital will accept patient. assisted unable to do 1 to 1 care. Respite care being evaluated. Patient has been doing well for the past 24 hours. Currently looking at another [facility]. That decision will be made until April 24. 2. Elevated CPK The psychiatric facilities have declined taking the patient because of his CPKs being elevated The reason for the patient's CPK is elevated R due to his constant thrashing around. I do not feel the patient is undergoing rhabdomyolysis for unknown reasons but simply due to the fact that he is currently thrashing around. 3. Autism/OCD/aggressive behavior Continue with Risperdal Patient requires further inpatient psychiatric assistance as we do not have the appropriate services to meet this patient's needs. Vibrated has been discontinued as was concern from the patient's mother that some of his agitation may have been around the time that that was started. Actually seems to be doing well since that has been stopped. 4. DVT prophylaxis with Lovenox Code Visit Inpatient E&M: 26644 Subs Hosp L2
--- NOTE | 2018-04-22 08:50 | PN_ITS ---
Patient Problems: Active and Suspected Problems Agitation (Acute) Subjective: Patient has been much more calm. Restraints have been completely removed and patient is pretty reasonable and follows instructions. Patient has had no evidence of any combative behavior. Objective: Patient had a normal gait when from the restroom. He did reach out his left hand unclear if was meant shake it but was shaken anyways. Talked about going home and about his mommy. Vitals/I&O's: Vital Signs Temp Pulse Resp BP Pulse Ox 37.0 C 63 20 H 137/75 H 97 04/22/18 07:36 04/22/18 07:36 04/22/18 07:36 04/22/18 07:36 04/22/18 07:36 Oxygen Delivery Method Room Air Weight: 83.4 kg Body Mass Index (BMI) 25.5 Intake and Output for Last 24 Hours 04/20/18 04/21/18 04/22/18 23:59 23:59 23:59 Intake Total 5537 / 5537 3230 / 3230 1805 / 1805 Output Total 5300 / 5300 3500 / 3500 550 / 550 Balance 237 / 237 -270 / -270 1255 / 1255 General: Alert, No apparent distress HEENT: Atraumatic, Normocephalic Oral: Moist Mucosa, No Gingival or Mucosal Lesions/ Ulcerations Neck: No Nodes, Thyroid Normal Size and Texture Lungs: Clear to auscultation, Normal air movement, No rhonchi, No wheeze Cardiovascular: Regular rate, Regular Rhythm, Normal S1, Normal S2, No murmurs Abdomen: Bowel Sounds Present, Soft, Non Tender, Non-Distended, No Hepato- splenomegaly Extremities: No edema, No Calf Tenderness Current Medications Enoxaparin Sodium (Lovenox) 40 mg SC DAILY@1000 [facility] Last Admin: 04/21/18 09:06 Dose: Not Given Fluvoxamine Maleate (Luvox) 200 mg PO DAILY [facility] Last Admin: 04/21/18 09:03 Dose: 200 mg Magnesium Hydroxide (Milk Of Magnesia) 30 ml PO DAILY PRN PRN PRN Reason: Constipation Propranolol HCl (Inderal) 10 mg PO DAILY [facility] Last Admin: 04/21/18 09:03 Dose: 10 mg Propranolol HCl (Inderal) 20 mg PO QHS [facility] Last Admin: 04/21/18 21:37 Dose: 20 mg Risperidone (Risperdal) 4 mg PO BID [facility] Last Admin: 04/21/18 21:37 Dose: 4 mg Sodium Chloride () 5 - 30 ml IV UD PRN PRN Reason: SALINE FLUSH Medical Necessity - Tobacco Use Smoking Status: Never smoker Assessment/Plan All Active Problems Elevated CPK (Acute) Agitation (Acute) 1. Agitation * Precedex now off * Mother was concerned that his symptoms may have worsened since starting Viibryd. That was stopped on the * continue with risperdal * Crisis states that there is nothing further that they can do. * Sent to the [facility]DD board who stated that no psych hospital will accept patient. * [facility] unable to do [facility] to [facility] care. * Respite care being evaluated. * Patient has been doing well for the past 24 hours. Currently looking at another skilled nursing, [facility]. That decision will be made until April 24. 2. Elevated CPK * The psychiatric facilities have declined taking the patient because of his CPKs being elevated * The reason for the patient's CPK is elevated R due to his constant thrashing around. I do not feel the patient is undergoing rhabdomyolysis for unknown reasons but simply due to the fact that he is currently thrashing around. 3. Autism/OCD/aggressive behavior * Continue with Risperdal * Patient requires further inpatient psychiatric assistance as we do not have the appropriate services to meet this patient's needs. * Vibrated has been discontinued as was concern from the patient's mother that some of his agitation may have been around the time that that was started. Actually seems to be doing well since that has been stopped. 4. DVT prophylaxis with Lovenox Code Visit Inpatient E&M: 37127 Subs Hosp L2
[2018-04-22] MEDS: RisperiDONE 2 MG Tablet 4 MG PO (08:57)
[2018-04-22] MEDS: fluvoxaMINE Maleate 50 MG Tablet 200 MG PO (08:57)
[2018-04-22] MEDS: Propranolol 10 MG Tablet PO (08:58)
--- NOTE | 2018-04-22 10:06 | NURSING ---
Dr. Wisdom notified pt has had 3 acts of aggression towards nursing while un-restrained. 2 pushes and 1 pinch. pt generally easily re-directed. occassionally gets aggressive. Will continue to try to keep un-restrained.
[2018-04-22 14:15] VITALS: BP 146/86; PULSE 70; RESP 16; TEMP 36.7; O2SAT 97
[2018-04-22 21:09] VITALS: BP 113/90; PULSE 68; RESP 14; TEMP 36.5; O2SAT 98
--- NOTE | 2018-04-22 21:11 | NURSING ---
Pt yelling no and begins kicking bed when this RN attempting to give pt medications. Much emotional support provided and pt continues to escalate in agitation by raising voice and kicking bed. Medications are not given at this time, will continue to try.
--- NOTE | 2018-04-22 23:40 | NURSING ---
This RN attempting to give pt medications again. Pt has head covered with blankets and pulls blankets tighter when trying to uncover pt. Pt becomes agitated and kicks towards bed.
--- NOTE | 2018-04-23 02:50 | NURSING ---
Pt laying in bed with head covered with blankets. Pt not allowing this RN to uncover pt's head and becomes agitated when trying to put pulse ox on pt's finger. Pt yells no and will not allow VS to be taken. Pt again explained medications needing administered. Pt begins kicking bed and yelling no
[2018-04-23 04:30] VITALS: BP 127/95; PULSE 75; RESP 14; TEMP 36.6; O2SAT 100
--- NOTE | 2018-04-23 09:02 | PCM.PN.HOSP ---
Subjective: Never required restraints yesterday. has been pleasant. Vitals/I&O's: Vital Signs Temp Pulse Resp BP Pulse Ox 36.6 C 75 14 127/95 H 100 04/23/18 04:30 04/23/18 04:30 04/23/18 04:30 04/23/18 04:30 04/23/18 04:30 Oxygen Delivery Method Room Air Weight: 83.4 kg Body Mass Index (BMI) 25.5 Intake and Output for Last 24 Hours 04/21/18 04/22/18 04/23/18 23:59 23:59 23:59 Intake Total 3230 / 3230 2165 / 2165 120 / 120 Output Total 3500 / 3500 550 / 550 Balance -270 / -270 1615 / 1615 120 / 120 General: Alert, No apparent distress HEENT: Atraumatic, Normocephalic Neck: No Nodes, Thyroid Normal Size and Texture Lungs: Clear to auscultation, Normal air movement, No rhonchi, No wheeze Cardiovascular: Regular rate, Regular Rhythm, Normal S1, Normal S2 Abdomen: Bowel Sounds Present, Soft, Non Tender, Non-Distended Extremities: No edema, No Calf Tenderness Current Medications Enoxaparin Sodium (Lovenox) 40 mg SC DAILY@1000 [facility] Last Admin: 04/22/18 10:09 Dose: Not Given Fluvoxamine Maleate (Luvox) 200 mg PO DAILY [facility] Last Admin: 04/22/18 08:57 Dose: 200 mg Magnesium Hydroxide (Milk Of Magnesia) 30 ml PO DAILY PRN PRN PRN Reason: Constipation Propranolol HCl (Inderal) 10 mg PO DAILY [facility] Last Admin: 04/22/18 08:58 Dose: 10 mg Propranolol HCl (Inderal) 20 mg PO QHS [facility] Last Admin: 04/22/18 21:11 Dose: Not Given Risperidone (Risperdal) 4 mg PO BID [facility] Last Admin: 04/22/18 21:11 Dose: Not Given Sodium Chloride () 5 - 30 ml IV UD PRN PRN Reason: SALINE FLUSH Medical Necessity - Tobacco Use Smoking Status: Never smoker Assessment/Plan All Active Problems Elevated CPK (Acute) Agitation (Acute) 1. Agitation Precedex now off Mother was concerned that his symptoms may have worsened since starting Viibryd. That was stopped on the continue with risperdal Crisis states that there is nothing further that they can do. [facility] who stated that no psych hospital will accept patient. skilled nursing unable to do 1 to 1 care. Respite care being evaluated. Patient has been doing well. Currently looking at another assisted, [facility]. That decision will be made until April 24. 2. Elevated CPK The psychiatric facilities have declined taking the patient because of his CPKs being elevated The reason for the patient's CPK is elevated R due to his constant thrashing around. I do not feel the patient is undergoing rhabdomyolysis for unknown reasons but simply due to the fact that he is currently thrashing around. 3. Autism/OCD/aggressive behavior Continue with Risperdal Patient requires further inpatient psychiatric assistance as we do not have the appropriate services to meet this patient's needs. Vibrated has been discontinued as was concern from the patient's mother that some of his agitation may have been around the time that that was started. Actually seems to be doing well since that has been stopped. 4. DVT prophylaxis with Lovenox Code Visit Inpatient E&M: 01566 Subs Hosp L2
--- NOTE | 2018-04-23 09:07 | PN_ITS ---
Subjective: Never required restraints yesterday. has been pleasant. Vitals/I&O's: Vital Signs Temp Pulse Resp BP Pulse Ox 36.6 C 75 14 127/95 H 100 04/23/18 04:30 04/23/18 04:30 04/23/18 04:30 04/23/18 04:30 04/23/18 04:30 Oxygen Delivery Method Room Air Weight: 83.4 kg Body Mass Index (BMI) 25.5 Intake and Output for Last 24 Hours 04/21/18 04/22/18 04/23/18 23:59 23:59 23:59 Intake Total 3230 / 3230 2165 / 2165 120 / 120 Output Total 3500 / 3500 550 / 550 Balance -270 / -270 1615 / 1615 120 / 120 General: Alert, No apparent distress HEENT: Atraumatic, Normocephalic Neck: No Nodes, Thyroid Normal Size and Texture Lungs: Clear to auscultation, Normal air movement, No rhonchi, No wheeze Cardiovascular: Regular rate, Regular Rhythm, Normal S1, Normal S2 Abdomen: Bowel Sounds Present, Soft, Non Tender, Non-Distended Extremities: No edema, No Calf Tenderness Current Medications Enoxaparin Sodium (Lovenox) 40 mg SC DAILY@1000 [facility] Last Admin: 04/22/18 10:09 Dose: Not Given Fluvoxamine Maleate (Luvox) 200 mg PO DAILY [facility] Last Admin: 04/22/18 08:57 Dose: 200 mg Magnesium Hydroxide (Milk Of Magnesia) 30 ml PO DAILY PRN PRN PRN Reason: Constipation Propranolol HCl (Inderal) 10 mg PO DAILY [facility] Last Admin: 04/22/18 08:58 Dose: 10 mg Propranolol HCl (Inderal) 20 mg PO QHS [facility] Last Admin: 04/22/18 21:11 Dose: Not Given Risperidone (Risperdal) 4 mg PO BID [facility] Last Admin: 04/22/18 21:11 Dose: Not Given Sodium Chloride () 5 - 30 ml IV UD PRN PRN Reason: SALINE FLUSH Medical Necessity - Tobacco Use Smoking Status: Never smoker Assessment/Plan All Active Problems Elevated CPK (Acute) Agitation (Acute) 1. Agitation * Precedex now off * Mother was concerned that his symptoms may have worsened since starting Viibryd. That was stopped on the * continue with risperdal * Crisis states that there is nothing further that they can do. * [facility] who stated that no psych hospital will accept patient. * [facility] unable to do 1 to 1 care. * Respite care being evaluated. * Patient has been doing well. Currently looking at another correction, [facility]. That decision will be made until April 24. 2. Elevated CPK * The psychiatric facilities have declined taking the patient because of his CPKs being elevated * The reason for the patient's CPK is elevated R due to his constant thrashing around. I do not feel the patient is undergoing rhabdomyolysis for unknown reasons but simply due to the fact that he is currently thrashing around. 3. Autism/OCD/aggressive behavior * Continue with Risperdal * Patient requires further inpatient psychiatric assistance as we do not have the appropriate services to meet this patient's needs. * Vibrated has been discontinued as was concern from the patient's mother that some of his agitation may have been around the time that that was started. Actually seems to be doing well since that has been stopped. 4. DVT prophylaxis with Lovenox Code Visit Inpatient E&M: 54547 Subs Hosp L2
[2018-04-23] MEDS: fluvoxaMINE Maleate 50 MG Tablet 200 MG PO (09:43)
[2018-04-23] MEDS: Propranolol 10 MG Tablet PO ×2 (09:50→09:51)
[2018-04-23] MEDS: RisperiDONE 2 MG Tablet 4 MG PO (09:51)
--- NOTE | 2018-04-23 10:30 | NURSING ---
Pt agitated at this time. refusing care. VS delayed.
--- NOTE | 2018-04-23 21:52 | NURSING ---
Attempted to administer 2200 medications, take vitals and perform an assessment. Patient yelling I'm tired! Leave me alone! Explained the importance of taking medications and patient stated No! I'm tired! Leave me alone! If patient becomes cooperative will re-approach with medications, vitals and assessment.
--- NOTE | 2018-04-23 23:57 | NURSING ---
Patient up to the restroom at this time. Approached patient with medications, vitals and hands on assessment. He stomped his foot and jumped into bed saying No! I want to go home! Patient agitated but calmed down once this nurse left the room.
[2018-04-24 04:00] VITALS: BP 116/75; PULSE 57; RESP 18; TEMP 36.7; O2SAT 96
[2018-04-24 07:55] VITALS: BP 114/68; PULSE 66; RESP 18; TEMP 36.7; O2SAT 100
--- NOTE | 2018-04-24 08:23 | NURSING ---
Patient at nurses station saying he is bored, this nurse offered to walk with patient in hallway, however he must wear his socks. Patient started yelling at this nurse, refusing to wear socks. Patient escalated his agitation with this nurse and MARION Kidd, starting to yell saying he wants to go home. Patient refusing to take medications at this time, becoming more agitated when asked. Patient also refusing to eat breakfast at this time. Will try again at a later time.
--- NOTE | 2018-04-24 09:12 | CASEMGMT ---
KIRAN called patient's case resolution specialist from [facility] , Laurie Agustin. She said she is waiting to hear back from [facility]. She will call SW as soon as she hears anything. KIRAN let RN know above. Susanna HARRY MSW
--- NOTE | 2018-04-24 09:35 | PN_ITS ---
Subjective: Has been up and out of his room. Declined his medication, even told it is Tylenol. States to me that he wants to go home. Vitals/I&O's: Vital Signs Temp Pulse Resp BP Pulse Ox 36.7 C 66 18 114/68 100 04/24/18 07:55 04/24/18 07:55 04/24/18 07:55 04/24/18 07:55 04/24/18 07:55 Oxygen Delivery Method Room Air Weight: 83.4 kg Body Mass Index (BMI) 25.5 Intake and Output for Last 24 Hours 04/22/18 04/23/18 04/24/18 23:59 23:59 23:59 Intake Total 2165 / 2165 1410 / 1410 Output Total 550 / 550 Balance 1615 / 1615 1410 / 1410 General: Alert, No apparent distress, - - pleasantly confused. not agitated. HEENT: Atraumatic, Normocephalic Neck: No Nodes, Thyroid Normal Size and Texture Lungs: Clear to auscultation, Normal air movement, No rhonchi, No wheeze Cardiovascular: Regular rate, Regular Rhythm, Normal S1, Normal S2, No murmurs Abdomen: Bowel Sounds Present, Soft, Non Tender, Non-Distended, No Hepato- splenomegaly Extremities: No edema, No Calf Tenderness Current Medications Enoxaparin Sodium (Lovenox) 40 mg SC DAILY@1000 [facility] Last Admin: 04/23/18 09:45 Dose: Not Given Fluvoxamine Maleate (Luvox) 200 mg PO DAILY [facility] Last Admin: 04/23/18 09:43 Dose: 200 mg Magnesium Hydroxide (Milk Of Magnesia) 30 ml PO DAILY PRN PRN PRN Reason: Constipation Propranolol HCl (Inderal) 10 mg PO DAILY [facility] Last Admin: 04/23/18 09:51 Dose: 10 mg Propranolol HCl (Inderal) 20 mg PO QHS [facility] Last Admin: 04/23/18 23:29 Dose: Not Given Risperidone (Risperdal) 4 mg PO BID [facility] Last Admin: 04/23/18 23:29 Dose: Not Given Sodium Chloride () 5 - 30 ml IV UD PRN PRN Reason: SALINE FLUSH Medical Necessity - Tobacco Use Smoking Status: Never smoker Assessment/Plan All Active Problems Elevated CPK (Acute) Agitation (Acute) 1. Agitation * Precedex now off * Mother was concerned that his symptoms may have worsened since starting Viibryd. That was stopped on the * continue with risperdal * Crisis states that there is nothing further that they can do. * [facility] who [facility] that no psych hospital will accept patient. * correction unable to do 1 to 1 care. * Respite care being evaluated. * Patient has been doing well. Currently looking at another shelter, [facility]. That decision may be made until April 24. 2. Elevated CPK * The psychiatric facilities have declined taking the patient because of his CPKs being elevated * The reason for the patient's CPK is elevated R due to his constant thrashing around. I do not feel the patient is undergoing rhabdomyolysis for unknown reasons but simply due to the fact that he is currently thrashing around. 3. Autism/OCD/aggressive behavior * Continue with Risperdal, though patient is declining now. Hopefully, patient won't defervesce. * Patient requires further inpatient psychiatric assistance as we do not have the appropriate services to meet this patient's needs. * Vibrated has been discontinued as was concern from the patient's mother that some of his agitation may have been around the time that that was started. Actually seems to be doing well since that has been stopped. 4. DVT prophylaxis with Lovenox Code Visit Inpatient E&M: 64078 Subs Hosp L2
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
[2018-04-24] MEDS: RisperiDONE 2 MG Tablet 4 MG PO (12:06)
[2018-04-24] MEDS: fluvoxaMINE Maleate 50 MG Tablet 200 MG PO (12:07)
[2018-04-24] MEDS: Propranolol 10 MG Tablet PO (12:08)
--- NOTE | 2018-04-24 15:14 | CASEMGMT ---
KIRAN called Laurie at [facility] . She said she sent her contact at [facility] an e-mail and they were meeting about patient this afternoon. He hopes to have an answer soon. This was at least 3 hours ago. KIRAN asked her if they would be able to send someone to sit with patient as he is starting to become more and more agitated. She said she could check with [place]. KIRAN asked her if it is a care home through [facility]. She said it is not as they do not have group homes. She said they are private and that is why they can refuse to take them back. She will let SW knows as soon as she hears something. Susanna HARRY MSW
--- NOTE | 2018-04-24 15:31 | CASEMGMT ---
KIRAN just received a phone call from Laurie at [facility] and [facility] declined patient. She is going to reach out to a half-way in [place]. She will keep SW updated. KIRAN asked if she was able to find out if [facility] could send someone in to sit with patient. She left a message for their director and is waiting on a return call. KIRAN let patient's RN know above. Susanna HARRY MSW
[2018-04-24 19:45] VITALS: BP 120/71; PULSE 62; RESP 18; TEMP 36.9; O2SAT 100
--- NOTE | 2018-04-24 22:50 | NURSING ---
Pt refused to take medications at this time, states tired, don't want to. Reinforced need to take medications with no success.
--- NOTE | 2018-04-25 00:20 | NURSING ---
Addendum entered by Tyler Mena 04/25/18 00:22: Refused to take medications at this time. Original Note: Attempted to administer HS medications again after refusal during earlier med pass. Pt remains drowsy but alert to voice, states I'm tired.
[2018-04-25 07:28] VITALS: BP 123/75; PULSE 70; RESP 16; TEMP 36.7; O2SAT 99
[2018-04-25] MEDS: RisperiDONE 2 MG Tablet 4 MG PO (08:11)
[2018-04-25] MEDS: fluvoxaMINE Maleate 50 MG Tablet 200 MG PO (08:11)
[2018-04-25] MEDS: Propranolol 10 MG Tablet PO (08:12)
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
--- NOTE | 2018-04-25 11:13 | CASEMGMT ---
SW received a call from Laurie at [facility] and patient's dad will be coming to pick him up later on this evening. KIRAN let propellant charge zone assembler and patient's RN know this plan. Plan: d/c home with patient's dad until alternative placement can be found. Susanna HARRY MSW
--- NOTE | 2018-04-25 12:33 | PCM.DC ---
You will use the following diet at home:: No restrictions Your food should be the consistency of: Regular Your liquids should be the consistency of: Regular/Thin Discharge Activity: Return to Normal Activity Allergies/Adverse Reactions: Allergies No Known Allergies Allergy (Verified 04/17/18 10:23) Medications to take at Discharge Fluvoxamine Maleate 2 tab PO DAILY #120 tab 04/25/18 Propranolol HCl 1 tab PO DAILY #90 tab 04/25/18 Risperidone [Risperdal] 1 tab PO BID #60 tab 04/25/18 The following prescriptions were given: Fluvoxamine Maleate 2 tab PO DAILY #120 tab Propranolol HCl 1 tab PO DAILY #90 tab Risperidone [Risperdal] 1 tab PO BID #60 tab Primary Care Physician: Matty Vanegas MD [Primary Care Provider] - Within 2 Weeks Test Results: Proposed Discharge Date: 04/25/18
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
--- NOTE | 2018-04-25 12:39 | DS.PCM_ITS ---
Discharge Date and Diagnosis Date of Admission: 04/18/18 Date of Discharge: 04/25/18 Hospital Course and Treatment Imaging Results: Clinical Impression(s) from Imaging Studies Brain CT 04/17/18 17:55 IMPRESSION: Normal unenhanced CT scan of the brain. Electronically Signed: Wilfredo Babbmary at 19:47 EDT Tel , Service support , Operations: None Procedures: None Summary of Care Provided: The patient is a 32 year old M presents with agitation. Patient appears to have been in a alf and had a complication with another resident's. Patient was evicted from that alf and sent home with family. Family was unable to care for him given his agitation and sent the patient to the emergency room. In the emergency room patient's agitation got worse and more severe patient did require numerous rounds of medical patients. Patient was in the ER for approximately 31 hours awaiting on psych placement. For unclear reasons a CPK was ordered and was elevated. The psych units then quickly stated that they would not accept the patient because of his CPKs and said about how to be resolved before the patient could be accepted. Patient was very combative and thrashing around in the patient's elevated CPKs. I informed the psychiatric liaison that would not be anything prohibitive for the patient going to a psych unit. The crisis team via the patient for psych placement and all psych facilities declined the patient. Then [facility] was evaluated patient and then they informed us that they would not accept the patient. So the legal team at the hospital got involved here and. For the patient's agitation he did require a Precedex drip which is eventually weaned off. Patient had been started on Viibryd approximately month before and the patient's mother concerned that that was leading to his increased agitation and that was discontinued. Patient has just been taking his Risperdal. Patient has been up in the hallway saying that he wants to go home over and over again asking for his mommy. And so we are waiting on feedback as to where the patient go from the hospital. Patient's father today states that he would take the patient home and try to arrange for placement in a alf for respite care as outpatient. [] Discharge Diet: No Restrictions Discharge Activity: Return to Normal Activity Home Medications: Medications to take at Discharge Fluvoxamine Maleate 2 tab PO DAILY #120 tab 04/25/18 Propranolol HCl 1 tab PO DAILY #90 tab 04/25/18 Risperidone [Risperdal] 1 tab PO BID #60 tab 04/25/18 Following Prescrptions Were Given to Patient: Fluvoxamine Maleate 2 tab PO DAILY #120 tab Propranolol HCl 1 tab PO DAILY #90 tab Risperidone [Risperdal] 1 tab PO BID #60 tab Primary Care Physician: Matty Vanegas MD [Primary Care Provider] - Within 2 Weeks Please Follow Up With: Uziel Burt MD Disposition: Home Minutes spent on discharge:: 40 Patient Condition:: Stable Medical Necessity - Tobacco Use Smoking Status: Never smoker Meaningful Use Info Meaningful Use Diagnoses (Choose all that apply): None applicable Code Visit Inpatient E&M: 91420 Disch Hosp
== END 2018-04-25 17:50 | disposition home or self-care (01) | DRG 884 ==
LOC: ED 17:18 → ICU 04-18 16:35
PROVIDERS: Admitting Provider Internal Medicine; Emergency Provider Emergency Medicine; Family Provider Family Medicine; PCP Family Medicine
DX: R45.1 Restlessness and agitation (principal); Z78.1 Physical restraint status; F84.0 Autistic disorder; R74.8 Abnormal levels of other serum enzymes; F42.9 Obsessive-compulsive disorder, unspecified
CPT/HCPCS: 70450; 80048; 80076; 80307; 80320; 82550; 83690; 85025; 85027; 87641; 93005; 99282; J7030; G0480; J3486